=== PATIENT | female | born 1980 | race Hispanic/Latino ===

== ENCOUNTER 2022-02-24 09:30 | Inpatient (IN) | payer OTHER ==
[2022-02-24] VITALS (7 sets, daily range): BP systolic 125–132; BP diastolic 70–88
[~2022-02-24] VITALS: Ht 162.6 cm; Wt 112.6 kg
[2022-02-24] MEDS ORDERED: ASPIRIN 81 MG CHEW TAB PO ONE ×2 (09:45→11:45)
[2022-02-24] MEDS ORDERED: LACTATED RINGER'S 1,000 ML INJ ONE (10:00)
[2022-02-24 10:07] LABS: BASOPHILS # (AUTO) 0.1 (0.0-0.1); BASOPHILS % 0.8 % (0.0-1.0); EOSINOPHILS # (AUTO) 0.1 (0.0-0.4); EOSINOPHILS % 0.9 % (0.0-6.0); HEMATOCRIT 27.6 % (34.2-44.1); HEMOGLOBIN 7.6 g/dL (12.0-16.0); LYMPHOCYTES % 15.4 % (18.0-39.1); MEAN CORPUSCULAR HEMOGLOBIN 17.9 pg (28-32); MEAN CORPUSCULAR HGB CONC 27.5 g/dL (31-35); MEAN CORPUSCULAR VOLUME 65.1 fL (81-99); MONOCYTES # (AUTO) 0.8 (0.2-0.8); MONOCYTES % 6.4 % (4.4-11.3); NEUTROPHILS # (AUTO) 9.5 (2.1-6.9); NEUTROPHILS % 74.8 % (38.7-80.0); PLATELET COUNT 451 x10e3/uL (140-360); RED BLOOD COUNT 4.24 x10e6/uL (3.6-5.1)
[2022-02-24 10:17] LABS: ALBUMIN 3.8 g/dL (3.5-5.0); ALBUMIN/GLOBULIN RATIO 0.8 (0.8-2.0); ANION GAP 18.1 mmol/L (8-16); CALCIUM 8.5 mg/dL (8.4-10.2); CREATININE, SERUM 0.74 mg/dL (0.57-1.11); POTASSIUM 4.1 mmol/L (3.5-5.1)
[2022-02-24 11:18] LABS: CLARITY,URINE SL CLOUDY (CLEAR); COLOR,URINE YELLOW (YELLOW); KETONES,URINE NEGATIVE (NEGATIVE); LEUKOCYTE ESTERASE ,URINE TRACE (NEGATIVE); NITRITE,URINE NEGATIVE (NEGATIVE); PROTEIN,URINE DIPSTICK NEGATIVE (NEGATIVE); URINE UROBILINOGEN 0.2 mg/dL (0.2 - 1)
[2022-02-24] MEDS ORDERED: IOPAMIDOL 370 MG/ML 100 ML INFUS..BTL INJ ONE (11:20)
[2022-02-24 11:23] LABS: BACTERIA,URINE MODERATE /HPF; EPITHELIAL CELLS,URINE MANY /LPF
[2022-02-24] MEDS ORDERED: DAILY VALUE1 EACH PO (11:58)
[2022-02-24] MEDS ORDERED: LOW DOSE ASPIRI81 MG PEG (11:58)
[2022-02-24] MEDS ORDERED: NEXIUM20 MG PO (11:58)
[2022-02-24] MEDS: HEPARIN SOD (PORCINE) 1000 UNIT/ML SDV IV ONE ×2 (12:58→13:07)
[2022-02-24] MEDS: HEPARIN 25,000 UNIT 1,300 UNIT in DEXTROSE 5% 250ML 250 ML IV SCH (12:58)
[2022-02-24] MEDS ORDERED: LACTATED RINGER'S 1,000 ML INJ SCH (13:45)
[2022-02-24] MEDS ORDERED: METOPROLOL TARTRATE INJ 1 MG/ML VIAL IV PRN (13:45)
[2022-02-24] MEDS ORDERED: MELATONIN 3 MG TAB PO PRN (13:45)
[2022-02-24] MEDS ORDERED: GUAIFENESIN/DEXTROMETHORPHAN LIQD 5 ML UDC PO PRN (13:45)
[2022-02-24] MEDS ORDERED: IPRATROPIUM BROMIDE 0.02% 2.5 ML NEB NEB PRN (14:00)
[2022-02-24 14:51] LABS: CHOL/HDL RATIO 4.5 (3.0-3.6)
[2022-02-24 14:57] LABS: INR 0.83; PROTHROMBIN TIME 12.2 seconds (11.9-14.5)
[2022-02-24] MEDS: IPRATROPIUM BROMIDE 0.02% 2.5 ML NEB NEB SCH ×3 (15:00→23:00)
[2022-02-24 15:11] LABS: FERRITIN 23.47 ng/mL (4.63-204.00)
[2022-02-24] MEDS: SODIUM CHLORIDE 0.9% 1000ML 1,000 ML IV SCH (18:00)
[2022-02-24] MEDS: ONDANSETRON HCL INJ 2MG/ML 2ML 2 MG/ML VIAL IV PRN (22:06)
[2022-02-25] VITALS (29 sets, daily range): BP systolic 105–133; BP diastolic 66–82
[2022-02-25] MEDS: IPRATROPIUM BROMIDE 0.02% 2.5 ML NEB NEB SCH ×4 (03:00→15:00)
[2022-02-25] MEDS: SODIUM CHLORIDE 0.9% 1000ML 1,000 ML IV SCH ×2 (05:40→18:43)
[2022-02-25 06:21] LABS: BASOPHILS # (AUTO) 0.1 (0.0-0.1); BASOPHILS % 0.6 % (0.0-1.0); EOSINOPHILS # (AUTO) 0.1 (0.0-0.4); EOSINOPHILS % 0.8 % (0.0-6.0); LYMPHOCYTES # (AUTO) 2.1 (1.0-3.2); LYMPHOCYTES % 13.5 % (18.0-39.1); MEAN CORPUSCULAR HEMOGLOBIN 18.1 pg (28-32); MEAN CORPUSCULAR HGB CONC 27.2 g/dL (31-35); MEAN CORPUSCULAR VOLUME 66.7 fL (81-99); MONOCYTES # (AUTO) 1.1 (0.2-0.8); MONOCYTES % 6.8 % (4.4-11.3); NEUTROPHILS # (AUTO) 12.3 (2.1-6.9); NEUTROPHILS % 77.8 % (38.7-80.0); PLATELET COUNT 457 x10e3/uL (140-360); RED BLOOD COUNT 3.75 x10e6/uL (3.6-5.1); RED CELL DISTRIBUTION WIDTH 21.3 % (11.7-14.4)
[2022-02-25 06:35] LABS: HEMOGLOBIN 6.8 g/dL (12.0-16.0)
[2022-02-25 06:49] LABS: CREATINE KINASE MB 0.6 ng/mL (0-5.0)
[2022-02-25 06:50] LABS: CALCIUM 7.8 mg/dL (8.4-10.2); CREATININE, SERUM 0.72 mg/dL (0.57-1.11)
[2022-02-25 06:52] LABS: MAGNESIUM 2.2 MG/DL (1.3-2.1); PHOSPHORUS 3.2 MG/DL (2.3-4.7)
[2022-02-25 08:31] LABS: ANISOCYTOSIS MODERATE; HYPOCHROMASIA MODERATE; MICROCYTOSIS MODERATE; OVALOCYTES FEW; PLATELET ESTIMATE ADEQUATE; PLATELET MORPHOLOGY COMMENT NORMAL; RBC MORPHOLOGY COMMENT ABNORMAL
[2022-02-25] MEDS ORDERED: CEFTRIAXONE 1 GM VIAL ONE (08:51)
[2022-02-25] MEDS: MULTIVITAMINS/MINERALS TAB PO SCH (09:01)
[2022-02-25] MEDS: ACETAMINOPHEN 325 MG TAB PO PRN ×2 (09:06→21:48)
[2022-02-25] MEDS: HEPARIN 25,000 UNIT 1,300 UNIT in DEXTROSE 5% 250ML 250 ML IV SCH (09:18)
[2022-02-25] MEDS: IRON SUCROSE 100 MG in SODIUM CHLORIDE 0.9% 100 ML IV SCH (10:03)
[2022-02-25] MEDS: Morphine 4mg INJECTION 4 MG/ML INJ IV PRN (13:28)
[2022-02-25 14:35] LABS: HEMATOCRIT 23.8 % (34.2-44.1)
[2022-02-25 14:44] LABS: HEMOGLOBIN 6.1 g/dL (12.0-16.0)
[2022-02-25 15:09] LABS: CREATINE KINASE MB 0.5 ng/mL (0-5.0)
[2022-02-25] MEDS ORDERED: SODIUM CHLORIDE 0.9% 250ML 250 ML IV ONE (15:30)
[2022-02-25] MEDS: ONDANSETRON HCL INJ 2MG/ML 2ML 2 MG/ML VIAL IV PRN (18:41)
[2022-02-25] MEDS ORDERED: SODIUM CHLORIDE 0.9% 250ML 250 ML ONE (21:08)
[2022-02-25] MEDS ORDERED: HEPARIN 25,000 UNIT DRIP IV ONE (22:30)
[2022-02-26] VITALS (14 sets, daily range): BP systolic 110–118; BP diastolic 66–76
[2022-02-26] MEDS: IPRATROPIUM BROMIDE 0.02% 2.5 ML NEB NEB SCH ×7 (00:20→23:00)
[2022-02-26] MEDS: ACETAMINOPHEN 325 MG TAB PO PRN (04:41)
[2022-02-26 05:02] LABS: BASOPHILS # (AUTO) 0.1 (0.0-0.1); BASOPHILS % 0.7 % (0.0-1.0); EOSINOPHILS # (AUTO) 0.2 (0.0-0.4); EOSINOPHILS % 1.1 % (0.0-6.0); HEMATOCRIT 26.5 % (34.2-44.1); HEMOGLOBIN 7.6 g/dL (12.0-16.0); LYMPHOCYTES # (AUTO) 2.7 (1.0-3.2); LYMPHOCYTES % 15.6 % (18.0-39.1); MEAN CORPUSCULAR HEMOGLOBIN 19.8 pg (28-32); MEAN CORPUSCULAR HGB CONC 28.7 g/dL (31-35); MEAN CORPUSCULAR VOLUME 69.2 fL (81-99); MONOCYTES # (AUTO) 1.2 (0.2-0.8); MONOCYTES % 6.8 % (4.4-11.3); NEUTROPHILS # (AUTO) 13.1 (2.1-6.9); NEUTROPHILS % 74.9 % (38.7-80.0); PLATELET COUNT 420 x10e3/uL (140-360); RED BLOOD COUNT 3.83 x10e6/uL (3.6-5.1); RED CELL DISTRIBUTION WIDTH 22.8 % (11.7-14.4)
[2022-02-26] MEDS: SODIUM CHLORIDE 0.9% 1000ML 1,000 ML IV SCH ×2 (06:15→18:02)
[2022-02-26] MEDS: IRON SUCROSE 100 MG in SODIUM CHLORIDE 0.9% 100 ML IV SCH (10:01)
[2022-02-26] MEDS: MULTIVITAMINS/MINERALS TAB PO SCH (10:02)
[2022-02-26 10:16] LABS: ANISOCYTOSIS MODERATE; HYPOCHROMASIA MODERATE; MICROCYTOSIS MODERATE; OVALOCYTES FEW; PLATELET ESTIMATE ADEQUATE; PLATELET MORPHOLOGY COMMENT NORMAL; POLYCHROMASIA FEW; RBC MORPHOLOGY COMMENT ABNORMAL; TEAR DROP CELLS FEW
[2022-02-26] MEDS: Morphine 4mg INJECTION 4 MG/ML INJ IV PRN (12:01)
[2022-02-26] MEDS ORDERED: Morphine 2mg Syringe 2 MG/ML SYR IV PRN (15:45)
[2022-02-26 16:19] LABS: BASOPHILS # (AUTO) 0.1 (0.0-0.1); BASOPHILS % 0.6 % (0.0-1.0); EOSINOPHILS # (AUTO) 0.2 (0.0-0.4); EOSINOPHILS % 1.4 % (0.0-6.0); HEMATOCRIT 26.9 % (34.2-44.1); HEMOGLOBIN 7.3 g/dL (12.0-16.0); LYMPHOCYTES # (AUTO) 2.3 (1.0-3.2); LYMPHOCYTES % 14.1 % (18.0-39.1); MEAN CORPUSCULAR HEMOGLOBIN 19.5 pg (28-32); MEAN CORPUSCULAR HGB CONC 27.1 g/dL (31-35); MEAN CORPUSCULAR VOLUME 71.9 fL (81-99); MONOCYTES % 6.1 % (4.4-11.3); NEUTROPHILS # (AUTO) 12.3 (2.1-6.9); NEUTROPHILS % 76.9 % (38.7-80.0); PLATELET COUNT 429 x10e3/uL (140-360); RED BLOOD COUNT 3.74 x10e6/uL (3.6-5.1); RED CELL DISTRIBUTION WIDTH 22.9 % (11.7-14.4)
[2022-02-26] MEDS: HEPARIN 25,000 UNIT 1,300 UNIT in DEXTROSE 5% 250ML 250 ML IV SCH (18:11)
[2022-02-27] VITALS (7 sets, daily range): BP systolic 114–140; BP diastolic 67–84
[2022-02-27] MEDS: IPRATROPIUM BROMIDE 0.02% 2.5 ML NEB NEB SCH ×3 (03:00→11:00)
[2022-02-27 04:59] LABS: BASOPHILS # (AUTO) 0.1 (0.0-0.1); BASOPHILS % 0.7 % (0.0-1.0); EOSINOPHILS # (AUTO) 0.3 (0.0-0.4); EOSINOPHILS % 1.8 % (0.0-6.0); HEMATOCRIT 27.7 % (34.2-44.1); HEMOGLOBIN 7.4 g/dL (12.0-16.0); LYMPHOCYTES # (AUTO) 2.4 (1.0-3.2); LYMPHOCYTES % 15.6 % (18.0-39.1); MEAN CORPUSCULAR HEMOGLOBIN 19.7 pg (28-32); MEAN CORPUSCULAR HGB CONC 26.7 g/dL (31-35); MEAN CORPUSCULAR VOLUME 73.7 fL (81-99); MONOCYTES % 6.3 % (4.4-11.3); NEUTROPHILS # (AUTO) 11.5 (2.1-6.9); NEUTROPHILS % 74.9 % (38.7-80.0); PLATELET COUNT 294 x10e3/uL (140-360); RED BLOOD COUNT 3.76 x10e6/uL (3.6-5.1); RED CELL DISTRIBUTION WIDTH 24.2 % (11.7-14.4)
[2022-02-27] MEDS: SODIUM CHLORIDE 0.9% 1000ML 1,000 ML IV SCH ×2 (06:30→22:44)
[2022-02-27] MEDS: MULTIVITAMINS/MINERALS TAB PO SCH (09:54)
[2022-02-27] MEDS: APIXABAN 5 MG TABLET PO SCH ×2 (09:54→17:08)
[2022-02-27] MEDS ORDERED: HEPARIN 25,000 UNIT DRIP IV ONE (10:23)
[2022-02-27] MEDS: HEPARIN 25,000 UNIT 1,300 UNIT in DEXTROSE 5% 250ML 250 ML IV SCH (10:24)
[2022-02-27] MEDS ORDERED: IOPAMIDOL 370 MG/ML 100 ML INFUS..BTL INJ ONE (10:48)
[2022-02-27] MEDS ORDERED: SODIUM CHLORIDE 0.9% 250ML 250 ML ONE (10:49)
[2022-02-27] MEDS: IRON SUCROSE 100 MG in SODIUM CHLORIDE 0.9% 100 ML IV SCH (14:36)
[2022-02-27] MEDS ORDERED: PANTOPRAZOLE SOD 40 MG TABEC PO ONE (16:15)
[2022-02-27] MEDS ORDERED: DOCUSATE SODIU100 MG PO (19:46)
[2022-02-27] MEDS ORDERED: ZITHROMAX250 MG PO (19:46)
[2022-02-27] MEDS ORDERED: AMOX TR-K CLV1 EAC2 PO (19:46)
[2022-02-27] MEDS ORDERED: FERROUS SULFAT325 MG PO (19:46)
[2022-02-27] MEDS ORDERED: ELIQUIS5 MG PO (19:46)
[2022-02-27] MEDS: ACETAMINOPHEN 325 MG TAB PO PRN (19:57)
[2022-02-28 00:23] VITALS: BP 109/66
[2022-02-28 04:26] VITALS: BP 121/82
[2022-02-28 05:04] LABS: BASOPHILS # (AUTO) 0.1 (0.0-0.1); EOSINOPHILS # (AUTO) 0.3 (0.0-0.4); EOSINOPHILS % 3.1 % (0.0-6.0); HEMATOCRIT 28.3 % (34.2-44.1); HEMOGLOBIN 7.8 g/dL (12.0-16.0); LYMPHOCYTES # (AUTO) 1.9 (1.0-3.2); LYMPHOCYTES % 17.6 % (18.0-39.1); MEAN CORPUSCULAR HEMOGLOBIN 20.3 pg (28-32); MEAN CORPUSCULAR HGB CONC 27.6 g/dL (31-35); MEAN CORPUSCULAR VOLUME 73.7 fL (81-99); MONOCYTES # (AUTO) 0.8 (0.2-0.8); MONOCYTES % 7.3 % (4.4-11.3); NEUTROPHILS # (AUTO) 7.7 (2.1-6.9); PLATELET COUNT 385 x10e3/uL (140-360); RED BLOOD COUNT 3.84 x10e6/uL (3.6-5.1); RED CELL DISTRIBUTION WIDTH 24.8 % (11.7-14.4)
[2022-02-28 07:00] VITALS: BP 141/87
[2022-02-28] MEDS ORDERED: PANTOPRAZOLE SOD 40 MG TABEC PO SCH (07:30)
[2022-02-28] MEDS: MULTIVITAMINS/MINERALS TAB PO SCH (08:30)
[2022-02-28] MEDS: APIXABAN 5 MG TABLET PO SCH (08:30)
[2022-02-28] MEDS: IRON SUCROSE 100 MG in SODIUM CHLORIDE 0.9% 100 ML IV SCH (09:00)
[2022-02-28 09:38] VITALS: BP 141/87
[2022-02-28] MEDS: SODIUM CHLORIDE 0.9% 1000ML 1,000 ML IV SCH (10:59)
== END 2022-02-28 12:26 | disposition home or self-care (01) | DRG 175 ==
LOC: ER 09:37 → ERHOLD 11:44 → ICU 14:14
PROVIDERS: ADMIT Internal Medicine Critical Care Medicine; ATTEND Internal Medicine Critical Care Medicine
PROC: 30233N1 Transfusion of Nonautologous Red Blood Cells into Peripheral Vein, Percutaneous Approach (ICD-10-PCS; principal; 2022-02-25)
DX: I26.99 Other pulmonary embolism without acute cor pulmonale (principal); J18.9 Pneumonia, unspecified organism; R18.8 Other ascites; Z68.41 Body mass index [BMI] 40.0-44.9, adult; N13.6 Pyonephrosis; I27.20 Pulmonary hypertension, unspecified; R16.2 Hepatomegaly with splenomegaly, not elsewhere classified; R59.0 Localized enlarged lymph nodes; D39.8 Neoplasm of uncertain behavior of other specified female genital organs; Z20.822 Contact with and (suspected) exposure to COVID-19; N70.11 Chronic salpingitis; Z86.16 Personal history of COVID-19; Z53.29 Procedure and treatment not carried out because of patient's decision for other reasons; R31.29 Other microscopic hematuria; E66.9 Obesity, unspecified; N92.0 Excessive and frequent menstruation with regular cycle; E83.51 Hypocalcemia; E66.01 Morbid (severe) obesity due to excess calories; E83.41 Hypermagnesemia; J30.9 Allergic rhinitis, unspecified; K21.9 Gastro-esophageal reflux disease without esophagitis
CPT/HCPCS: 36415; 71045; 71260; 74178; 76770; 76856; 80048; 80053; 80061; 81001; 82550; 82553; 82728; 83540; 83615; 83690; 83735; 84100; 84466; 84484; 85014; 85018; 85025; 85379; 85597; 85610; 85613; 85730; 86850; 86900; 86920; 93005; 93306; 93970; 94640; 94799; 96361; 99251; 99284; J0456; J0696; J1644; J1756; J2270; J2405; J7030; J7050; J7121; P9016; Q9967

== ENCOUNTER 2022-07-14 09:06 | Inpatient (IN) | payer OTHER ==
[2022-07-10 11:33] LABS: CLARITY,URINE CLOUDY (CLEAR); COLOR,URINE YELLOW (YELLOW); KETONES,URINE NEGATIVE (NEGATIVE); LEUKOCYTE ESTERASE ,URINE NEGATIVE (NEGATIVE); NITRITE,URINE NEGATIVE (NEGATIVE); PROTEIN,URINE DIPSTICK NEGATIVE (NEGATIVE); URINE UROBILINOGEN 0.2 mg/dL (0.2 - 1)
[2022-07-10 11:35] LABS: BACTERIA,URINE FEW /HPF; EPITHELIAL CELLS,URINE MODERATE /LPF
[~2022-07-14] VITALS: Ht 162.6 cm; Wt 111.1 kg
[2022-07-14 06:26] LABS: INR 0.88; PROTHROMBIN TIME 12.1 seconds (11.9-14.5)
[2022-07-14 06:27] LABS: PARTIAL THROMBOPLASTIN TIME 25.4 seconds (23.8-35.5)
[~2022-07-14 09:06] MED LIST: AMOX TR-K CLV1 EAC2 PO; CEFAZOLIN SODIUM 2 GM ONE; DAILY VALUE1 EACH PO; DOCUSATE SODIU100 MG PO; ELIQUIS5 MG PO; FAMOTIDINE20 MG PO; FERROUS SULFAT325 MG PO; LOW DOSE ASPIRI81 MG PEG; NEXIUM20 MG PO; SODIUM CHLORIDE 0.9% 100 ML ONE; TYLENOL325 MG PO; ZITHROMAX250 MG PO
[2022-07-14] MEDS ORDERED: ONDANSETRON HCL INJ 2MG/ML 2ML 2 MG/ML VIAL IV PRN ×3 (10:30→23:00)
[2022-07-14] MEDS ORDERED: Morphine 10mg syringe 10 MG/ML INJ IM PRN (10:30)
[2022-07-14] MEDS ORDERED: PANTOPRAZOLE SOD 40 MG TABEC PO PRN (10:30)
[2022-07-14] MEDS ORDERED: BISACODYL 10 MG SUPP PR PRN (10:30)
[2022-07-14] MEDS ORDERED: ACETAMINOPHEN 325 MG TAB PO PRN (10:30)
[2022-07-14] MEDS ORDERED: DOCUSATE SODIUM 100 MG CAP PO PRN (10:30)
[2022-07-14] MEDS ORDERED: FAMOTIDINE 20 MG TAB PO SCH (10:30)
[2022-07-14] MEDS ORDERED: FENTANYL CITRATE/PF 100MCG/2 ML INJ ONE ×2 (10:56→13:59)
[2022-07-14] MEDS ORDERED: NALOXONE HCL INJ 0.4 MG/ML AMP IV PRN ×2 (11:00)
[2022-07-14] MEDS ORDERED: DIPHENHYDRAMINE HCL 25 MG CAP PO PRN (11:00)
[2022-07-14] MEDS ORDERED: HYDROMORPHONE 0.2MG/ML-SOD CHL 30ML PCA SYRINGE IV PRN ×3 (11:00→18:45)
[2022-07-14] MEDS ORDERED: HYDROMORPHONE 0.2MG/ML-SOD CHL 30ML PCA SYRINGE IV ONE (11:08)
[2022-07-14] MEDS: KETOROLAC TROMETHAMINE 30 MG/ML VIAL IV SCH ×2 (12:00→17:26)
[2022-07-14] MEDS ORDERED: NEOSTIGMINE 1 MG/ML 10ML VIAL ONE (12:50)
[2022-07-14] MEDS ORDERED: PROPOFOL IV EMULSION 10 MG/ML 20 ML VIAL ONE (12:50)
[2022-07-14] MEDS ORDERED: DEXAMETHASONE SOD PHOS INJ 4 MG/ML SDV ONE (12:50)
[2022-07-14] MEDS ORDERED: ONDANSETRON HCL INJ 2MG/ML 2ML 2 MG/ML VIAL ONE (12:50)
[2022-07-14] MEDS ORDERED: ROCURONIUM BROMIDE 10 MG/ML 5ML VIAL IV ONE (12:50)
[2022-07-14] MEDS ORDERED: SEVOFLURANE INHAL SOLN 250 ML PEN BTL ONE (12:50)
[2022-07-14] MEDS ORDERED: POVIDONE IODINE 0.05% 0.05 % ML PO ONE (12:50)
[2022-07-14] MEDS ORDERED: EYE LUBRICANT OPTH OINT 3.5GM TUBE OP ONE (12:50)
[2022-07-14] MEDS ORDERED: GLYCOPYRROLATE INJ 0.2 MG/ML VIAL ONE (12:50)
[2022-07-14] MEDS ORDERED: LIDOCAINE HCL 2% LOCAL INJ 5 ML SDV VIAL INJ ONE (12:50)
[2022-07-14] MEDS: SIMETHICONE 80 MG CHEW PO SCH ×3 (13:00→20:54)
[2022-07-14] MEDS ORDERED: PHENYLEPHRINE HCL 1% 10 MG/ML VIAL ONE (13:00)
[2022-07-14] MEDS ORDERED: METOPROLOL TARTRATE INJ 1 MG/ML VIAL ONE (13:00)
[2022-07-14 13:11] VITALS: BP 109/70
[2022-07-14 13:30] VITALS: BP 109/70
[2022-07-14] MEDS: LACTATED RINGER'S 1,000 ML IV SCH (13:40)
[2022-07-14] MEDS ORDERED: Morphine 10mg syringe 10 MG/ML INJ ONE (13:59)
[2022-07-14] MEDS ORDERED: MIDAZOLAM HCL 2 MG/2 ML VIAL ONE (13:59)
[2022-07-14 14:17] VITALS: BP 109/70
[2022-07-14 15:56] VITALS: BP 125/78
[2022-07-14 17:59] LABS: HEMATOCRIT 35.3 % (34.2-44.1); HEMOGLOBIN 10.8 g/dL (12.0-16.0)
[2022-07-14 20:00] VITALS: BP 134/72
[2022-07-15] MEDS: KETOROLAC TROMETHAMINE 30 MG/ML VIAL IV SCH ×4 (01:05→16:35)
[2022-07-15] MEDS: LACTATED RINGER'S 1,000 ML IV SCH ×4 (01:05→21:15)
[2022-07-15 05:57] LABS: BASOPHILS % 0.1 % (0.0-1.0); HEMATOCRIT 25.8 % (34.2-44.1); HEMOGLOBIN 8.4 g/dL (12.0-16.0); LYMPHOCYTES # (AUTO) 1.6 (1.0-3.2); LYMPHOCYTES % 13.6 % (18.0-39.1); MEAN CORPUSCULAR HEMOGLOBIN 28.6 pg (28-32); MEAN CORPUSCULAR HGB CONC 32.6 g/dL (31-35); MEAN CORPUSCULAR VOLUME 87.8 fL (81-99); MONOCYTES # (AUTO) 1.2 (0.2-0.8); MONOCYTES % 10.5 % (4.4-11.3); NEUTROPHILS # (AUTO) 8.6 (2.1-6.9); NEUTROPHILS % 75.3 % (38.7-80.0); PLATELET COUNT 266 x10e3/uL (140-360); RED BLOOD COUNT 2.94 x10e6/uL (3.6-5.1); RED CELL DISTRIBUTION WIDTH 13.4 % (11.7-14.4)
[2022-07-15 06:48] VITALS: BP 105/64
[2022-07-15 07:06] LABS: ANION GAP 11.8 mmol/L (8-16); CALCIUM 7.3 mg/dL (8.4-10.2); CREATININE, SERUM 0.59 mg/dL (0.57-1.11); POTASSIUM 3.8 mmol/L (3.5-5.1)
[2022-07-15] MEDS: SIMETHICONE 80 MG CHEW PO SCH ×4 (07:33→21:14)
[2022-07-15 08:37] VITALS: BP 122/60
[2022-07-15 09:00] VITALS: BP 122/60
[2022-07-15 12:14] VITALS: BP 123/64
[2022-07-15] MEDS: ACETAMINOPHEN/CODEINE 300MG - 30MG TAB PO PRN ×3 (12:19→18:01)
[2022-07-15 16:29] VITALS: BP 138/69
[2022-07-15] MEDS: ENOXAPARIN SOD INJ 60 MG/0.6 ML SYR SC SCH (16:35)
[2022-07-15 20:41] VITALS: BP 113/63
[2022-07-16] MEDS: ACETAMINOPHEN/CODEINE 300MG - 30MG TAB PO PRN ×5 (00:07→19:24)
[2022-07-16 04:00] VITALS: BP 115/59
[2022-07-16 05:38] LABS: BASOPHILS # (AUTO) 0.1 (0.0-0.1); BASOPHILS % 0.6 % (0.0-1.0); EOSINOPHILS # (AUTO) 0.1 (0.0-0.4); EOSINOPHILS % 1.6 % (0.0-6.0); HEMATOCRIT 24.2 % (34.2-44.1); HEMOGLOBIN 7.7 g/dL (12.0-16.0); LYMPHOCYTES % 22.8 % (18.0-39.1); MEAN CORPUSCULAR HEMOGLOBIN 28.6 pg (28-32); MEAN CORPUSCULAR HGB CONC 31.8 g/dL (31-35); MONOCYTES # (AUTO) 0.6 (0.2-0.8); MONOCYTES % 7.5 % (4.4-11.3); NEUTROPHILS # (AUTO) 5.7 (2.1-6.9); PLATELET COUNT 238 x10e3/uL (140-360); RED BLOOD COUNT 2.69 x10e6/uL (3.6-5.1); RED CELL DISTRIBUTION WIDTH 14.1 % (11.7-14.4)
[2022-07-16] MEDS: KETOROLAC TROMETHAMINE 30 MG/ML VIAL IV SCH ×4 (06:30→18:00)
[2022-07-16 07:47] VITALS: BP 123/68
[2022-07-16] MEDS: SIMETHICONE 80 MG CHEW PO SCH ×4 (08:20→21:00)
[2022-07-16] MEDS: LACTATED RINGER'S 1,000 ML IV SCH ×2 (08:26→16:43)
[2022-07-16 08:47] VITALS: BP 123/68
[2022-07-16] MEDS ORDERED: SODIUM CHLORIDE 0.9% 250ML 250 ML IV ONE (09:45)
[2022-07-16] MEDS ORDERED: ONDANSETRON HCL 4 MG ORAL DISINTEGRATING TAB PO PRN (10:45)
[2022-07-16 11:36] VITALS: BP 121/71
[2022-07-16] MEDS ORDERED: SODIUM CHLORIDE 0.9% 250ML 250 ML ONE (13:10)
[2022-07-16] MEDS: ENOXAPARIN SOD INJ 60 MG/0.6 ML SYR SC SCH (16:27)
[2022-07-16 16:53] VITALS: BP 116/64
[2022-07-16 21:00] VITALS: BP 118/71
[2022-07-17] MEDS: ACETAMINOPHEN/CODEINE 300MG - 30MG TAB PO PRN ×4 (02:31→19:53)
[2022-07-17 05:49] LABS: BASOPHILS % 0.5 % (0.0-1.0); EOSINOPHILS # (AUTO) 0.3 (0.0-0.4); EOSINOPHILS % 3.3 % (0.0-6.0); HEMATOCRIT 25.7 % (34.2-44.1); HEMOGLOBIN 8.5 g/dL (12.0-16.0); LYMPHOCYTES % 22.9 % (18.0-39.1); MEAN CORPUSCULAR HEMOGLOBIN 29.5 pg (28-32); MEAN CORPUSCULAR HGB CONC 33.1 g/dL (31-35); MEAN CORPUSCULAR VOLUME 89.2 fL (81-99); MONOCYTES # (AUTO) 0.7 (0.2-0.8); MONOCYTES % 7.9 % (4.4-11.3); NEUTROPHILS # (AUTO) 5.6 (2.1-6.9); NEUTROPHILS % 64.7 % (38.7-80.0); PLATELET COUNT 252 x10e3/uL (140-360); RED BLOOD COUNT 2.88 x10e6/uL (3.6-5.1); RED CELL DISTRIBUTION WIDTH 13.7 % (11.7-14.4)
[2022-07-17] MEDS: KETOROLAC TROMETHAMINE 30 MG/ML VIAL IV SCH ×4 (06:00→16:47)
[2022-07-17] MEDS: LACTATED RINGER'S 1,000 ML IV SCH ×2 (06:29→19:23)
[2022-07-17 08:10] VITALS: BP 124/75
[2022-07-17] MEDS: SIMETHICONE 80 MG CHEW PO SCH ×3 (08:21→16:47)
[2022-07-17 08:25] VITALS: BP 124/75
[2022-07-17] MEDS ORDERED: SODIUM CHLORIDE FLUSH 10 ML SYR INJ PRN (09:30)
[2022-07-17 12:23] VITALS: BP 123/77
[2022-07-17 15:08] VITALS: BP 118/77
[2022-07-17] MEDS: ENOXAPARIN SOD INJ 60 MG/0.6 ML SYR SC SCH (16:47)
[2022-07-17] MEDS ORDERED: LOVENOX60 MG/0.6 SC (19:52)
[2022-07-17] MEDS ORDERED: Acetaminophen/Codeine 300-30MG PO (19:52)
[2022-07-17] MEDS ORDERED: ENOXAPARIN60 MG/0.6 SQ (19:59)
[2022-07-17 20:05] VITALS: BP 118/77
== END 2022-07-17 20:50 | disposition home or self-care (01) | DRG 742 ==
LOC: OR 09:06 → PACU V 10:41 → MED/SURG2 12:31
PROVIDERS: ADMIT Obstetrics & Gynecology; ATTEND Obstetrics & Gynecology
PROC: 0UN10ZZ Release Left Ovary, Open Approach (ICD-10-PCS; 2022-07-14)
PROC: 0UB10ZZ Excision of Left Ovary, Open Approach (ICD-10-PCS; 2022-07-14)
PROC: 0UB70ZZ Excision of Bilateral Fallopian Tubes, Open Approach (ICD-10-PCS; 2022-07-14)
PROC: 0W3J0ZZ Control Bleeding in Pelvic Cavity, Open Approach (ICD-10-PCS; 2022-07-14)
PROC: 0DNN0ZZ Release Sigmoid Colon, Open Approach (ICD-10-PCS; 2022-07-14)
PROC: 30233N1 Transfusion of Nonautologous Red Blood Cells into Peripheral Vein, Percutaneous Approach (ICD-10-PCS; 2022-07-14)
PROC: 0DN84ZZ Release Small Intestine, Percutaneous Endoscopic Approach (ICD-10-PCS; 2022-07-14)
PROC: 0UT90ZZ Resection of Uterus, Open Approach (ICD-10-PCS; principal; 2022-07-14 07:12)
DX: N80.122 Deep endometriosis of left ovary (principal); D62 Acute posthemorrhagic anemia; K91.62 Intraoperative hemorrhage and hematoma of a digestive system organ or structure complicating other procedure; N92.0 Excessive and frequent menstruation with regular cycle; D25.9 Leiomyoma of uterus, unspecified; D50.9 Iron deficiency anemia, unspecified; K66.0 Peritoneal adhesions (postprocedural) (postinfection); N70.11 Chronic salpingitis; Z86.711 Personal history of pulmonary embolism; Z86.16 Personal history of COVID-19; Z79.01 Long term (current) use of anticoagulants; Z20.822 Contact with and (suspected) exposure to COVID-19
CPT/HCPCS: 0223U; 36415; 80048; 81001; 81025; 85014; 85018; 85025; 85610; 85730; 86850; 86900; 86920; 88304; 88307; 93005; 94799; 99251; J0690; J1100; J1650; J1885; J2001; J2250; J2270; J2370; J2405; J2710; J3010; J7050; J7121; P9016

== ENCOUNTER → 2025-05-29 | Day surgery (SDC) | payer OTHER ==
[~2025-05-29] MED LIST changes: +Acetaminophen/Codeine 300-30MG PO; -CEFAZOLIN SODIUM 2 GM ONE; +ENOXAPARIN60 MG/0.6 SQ; +FENTANYL CITRATE/PF 100MCG/2 ML INJ ONE; +GLUCAGON FOR INJ 1 MG VIAL ONE; +HYOSCYAMINE SULFATE 0.5 MG/ML INJ ONE; +LIDOCAINE HCL 2% LOCAL INJ 5 ML SDV VIAL INJ ONE; +LOVENOX60 MG/0.6 SC; +OMEPRAZOLE40 MG PO; +PROPOFOL IV EMULSION 10 MG/ML 20 ML VIAL ONE; +PROPOFOL IV EMULSION 50 ML IV ONE; -SODIUM CHLORIDE 0.9% 100 ML ONE; +SUCRALFATE1 GM PO
[2025-05-29 12:59] VITALS: TEMP 98.6
[2025-05-29 13:20] VITALS: BP 113/70; PULSE 83; RESP 18; O2SAT 99
[2025-05-29] MEDS: LACTATED RINGER'S 1,000 ML ONE (13:51)
== END | disposition home or self-care (01) ==
LOC: OR 10:07
PROVIDERS: ATTEND Internal Medicine Gastroenterology
DX: Z12.11 Encounter for screening for malignant neoplasm of colon (principal); K64.8 Other hemorrhoids; K44.9 Diaphragmatic hernia without obstruction or gangrene; K21.00 Gastro-esophageal reflux disease with esophagitis, without bleeding; K29.50 Unspecified chronic gastritis without bleeding; K31.89 Other diseases of stomach and duodenum; K63.89 Other specified diseases of intestine; E66.812 Obesity, class 2; Z68.37 Body mass index [BMI] 37.0-37.9, adult; Z79.899 Other long term (current) drug therapy
CPT/HCPCS: 43239; 45380; J1610; J1980; J2003; J2470; J2704 ×2; J3010; J7121; 45378